=== PATIENT | female | born 1980 | race Two or more races ===

== ENCOUNTER 2016-12-10 23:48 | Emergency (ER) | payer SELFPAY ==
[~2016-12-10] VITALS: Ht 157.5 cm; Wt 49.9 kg
[~2016-12-10 23:48] MED LIST: CEPH-570 PO; OXYC-34 PO
--- NOTE | 2016-12-11 00:20 | NUR ---
P36 YO FEMALE BB SELF. PT IS ALERT X 3, C/O RIGHT FLANK AND ABD PAIN ON AND OFF X 1 MONTH DENIES N/V OR DIARRHEA. PT AMBULATED TO ER BED WITH STEADY GAIT, SKIN WARM AND DRY, RR EVEN AND UNLABORED. AWAITING ORDERS FROM PROVIDER, WILL CONITNUE TO MONITOR
--- NOTE | 2016-12-11 00:40 | NUR ---
MD VILCHIS AT BED SIDE FOR EVAL
[2016-12-11 01:15] LABS: BASOPHILS % (AUTO) 0.7 % (0.0-2.0); EOSINOPHILS # (AUTO) 0.1 /CMM (0.0-0.7); HEMATOCRIT 39 % (33-45); HEMOGLOBIN 13.1 g/dL (11.5-14.8); LYMPHOCYTES # (AUTO) 2.5 /CMM (0.8-4.8); LYMPHOCYTES % (AUTO) 40.3 % (20.0-44.0); MEAN CORPUSCULAR HEMOGLOBIN 32 PG (26.0-33.0); MEAN CORPUSCULAR HGB CONC 34 g/dl (31.0-36.0); MEAN CORPUSCULAR VOLUME 95 fL (82-100); MONOCYTES # (AUTO) 0.6 /CMM (0.1-1.30); MONOCYTES % (AUTO) 9.3 % (2.0-12.0); NEUTROPHILS % (AUTO) 47.7 % (43.0-81.0); PLATELET COUNT (AUTO) 268 /CMM (150-450); RDW COEFFICIENT OF VARIATION 14.9 (11.5-15.0); RED BLOOD CELL COUNT(AUTO) 4.08 MIL/uL (4.0-5.2); WHITE BLOOD COUNT (AUTO) 6.2 K/uL (4.3-11.0)
--- NOTE | 2016-12-11 01:33 | NUR ---
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 WILL CONTINUE TO MONITOR
[2016-12-11 01:35] LABS: INR 0.98 (0.87-1.13); PROTHROMBIN TIME 10.5 SECS (9.5-12.7)
[2016-12-11 01:46] LABS: CALCIUM, SERUM 8.5 mg/dL (8.5-10.1); POTASSIUM 3.2 mmol/L (3.5-5.1)
[2016-12-11 01:52] LABS: ALBUMIN 3.5 g/dL (3.4-5.0); BILIRUBIN,DIRECT 0.1 mg/dL (0.0-0.2); BILIRUBIN,TOTAL 0.5 mg/dL (0.2-1.0); TOTAL PROTEIN, SERUM 7.4 g/dL (6.4-8.2)
[2016-12-11] MEDS ORDERED: IV NS 0.9% 1,000 ML ONE (02:50)
[2016-12-11] MEDS ORDERED: FAMOTIDINE/PF INJ 20 MG/2 ML VIAL IV ONE ×2 (02:50→03:00)
[2016-12-11] MEDS ORDERED: METOCLOPRAMIDE HCL 10 MG/2 ML VIAL ONE (02:51)
--- NOTE | 2016-12-11 02:54 | NUR ---
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
[2016-12-11] MEDS ORDERED: IV NS 0.9% 1,000 ML BAG IV ONE (03:00)
[2016-12-11] MEDS ORDERED: METOCLOPRAMIDE HCL 10 MG/2 ML VIAL IV ONE (03:00)
[2016-12-11 03:53] VITALS: BP 107/55
--- NOTE | 2016-12-11 03:54 | NUR ---
Patient discharged to home in stable condition. Written and verbal after care instructions given. Patient verbalizes understanding of instruction.IV removed. Catheter intact and site benign. Pressure and 4x4 applied to site. No bleeding noted. PT ambulatory with a steady gait VITAL SIGNS WITHIN NORMAL LIMITS.
== END 2016-12-11 04:00 | disposition home or self-care (01) ==
LOC: ER 23:49
DX: K29.20 Alcoholic gastritis without bleeding (principal); F17.210 Nicotine dependence, cigarettes, uncomplicated
CPT/HCPCS: 36415; 76705-TC; 80048-TC; 80076-TC; 83690-TC; 84703-TC; 85025-TC; 85730-TC; A4606; J2765; J3490; J7030; Z7610

== ENCOUNTER 2018-01-28 00:10 | Emergency (ER) | payer OTHER ==
[~2018-01-28] VITALS: Ht 165.1 cm; Wt 63.5 kg
[~2018-01-28 00:10] MED LIST changes: +OXYC-133 PO; -OXYC-34 PO
[2018-01-28] MEDS ORDERED: ONDANSETRON HCL/PF 4 MG/2 ML VIAL ONE (00:27)
[2018-01-28] MEDS ORDERED: IV NS 0.9% 1,000 ML BAG IV ONE (00:30)
[2018-01-28] MEDS ORDERED: ONDANSETRON HCL/PF 4 MG/2 ML VIAL IVP ONE (00:30)
--- NOTE | 2018-01-28 00:42 | NUR ---
16g left ac iv started, blood sample obtained and sent to lab. medictaed pt as rodered
[2018-01-28 00:51] LABS: BASOPHILS # (AUTO) 0.1 /CMM (0.0-0.2); BASOPHILS % (AUTO) 0.6 % (0.0-2.0); EOSINOPHILS % (AUTO) 1.5 % (0.0-6.0); HEMATOCRIT 39 % (33-45); LYMPHOCYTES # (AUTO) 2.6 /CMM (0.8-4.8); LYMPHOCYTES % (AUTO) 27.9 % (20.0-44.0); MEAN CORPUSCULAR HEMOGLOBIN 31 PG (26.0-33.0); MEAN CORPUSCULAR HGB CONC 34 g/dl (31.0-36.0); MEAN CORPUSCULAR VOLUME 92 fL (82-100); MONOCYTES # (AUTO) 0.6 /CMM (0.1-1.30); NEUTROPHILS # (AUTO) 6.1 /CMM (1.8-8.9); PLATELET COUNT (AUTO) 387 /CMM (150-450); RDW COEFFICIENT OF VARIATION 14.6 (11.5-15.0); RED BLOOD CELL COUNT(AUTO) 4.23 MIL/uL (4.0-5.2); WHITE BLOOD COUNT (AUTO) 9.5 K/uL (4.3-11.0)
[2018-01-28 01:02] LABS: CALCIUM, SERUM 8.7 mg/dL (8.5-10.1); POTASSIUM 2.9 mmol/L (3.5-5.1)
[2018-01-28] MEDS ORDERED: POTASSIUM CHLORIDE 20 MEQ TAB.PRT.SR PO ONE ×3 (01:09→01:30)
--- NOTE | 2018-01-28 01:31 | NUR ---
IVF - NS 1 liter - started at 0031 AM -end time 0131 AM ; site LAC PIV # [id number]
--- NOTE | 2018-01-28 01:37 | NUR ---
PT APPEARS TO BE RESTING COMFORTABLY WITH NO S/S OF PAIN OR DISTRESS.
[2018-01-28 02:49] VITALS: BP 142/96
== END 2018-01-28 02:54 | disposition home or self-care (01) ==
LOC: ER 00:12
DX: T67.5XXA Heat exhaustion, unspecified, initial encounter (principal); F10.129 Alcohol abuse with intoxication, unspecified; E87.6 Hypokalemia; E86.0 Dehydration; F17.200 Nicotine dependence, unspecified, uncomplicated; Z98.890 Other specified postprocedural states; Z87.448 Personal history of other diseases of urinary system; Z79.899 Other long term (current) drug therapy; X58.XXXA Exposure to other specified factors, initial encounter; Y93.89 Activity, other specified; Y92.89 Other specified places as the place of occurrence of the external cause; Y99.8 Other external cause status; Y90.9 Presence of alcohol in blood, level not specified
CPT/HCPCS: 36415; 80048-TC; 84703-TC; 85025-TC; A4606; J2405; J7030; Z7610

== ENCOUNTER 2018-01-28 15:54 | Emergency (ER) | payer OTHER ==
[~2018-01-28] VITALS: Ht 157.5 cm; Wt 49.9 kg
[2018-01-28 17:11] LABS: APPEARANCE,URINE Clear (CLEAR); BILIRUBIN,URINE Negative (NEGATIVE); BLOOD, URINE Trace-lysed Ery/uL (NEGATIVE); COLOR,URINE Yellow (YELLOW); KETONES,URINE 15 (NEGATIVE); LEUKOCYTE ESTERASE ,URINE Negative (NEGATIVE); NITRITE, URINE Positive (NEGATIVE); PH,URINE 5.5 (5.0-8.0); PROTEIN,URINE 30 mg/dl (NEGATIVE); UGLUCOSE Negative (NEGATIVE); UROBILINOGEN,URINE 0.2 EU/dL (0.2)
[2018-01-28] MEDS ORDERED: CEFTRIAXONE 1GM BAG (ER ONLY) 1 GM/50 ML PIGGYBACK IV ONE (17:30)
[2018-01-28 17:31] LABS: BACTERIA,URINE 3+ /HPF (None Seen); SQUAMOUS EPITHELIAL CELL,UR Few /HPF (None Seen)
[2018-01-28] MEDS ORDERED: CEFTRIAXONE 1GM BAG (ER ONLY) 50 ML IV ONE (18:02)
[2018-01-28 18:31] VITALS: BP 132/81
== END 2018-01-28 18:32 | disposition home or self-care (01) ==
LOC: ER 15:57
DX: N39.0 Urinary tract infection, site not specified (principal); F10.10 Alcohol abuse, uncomplicated; Y90.9 Presence of alcohol in blood, level not specified; F17.200 Nicotine dependence, unspecified, uncomplicated; Z98.890 Other specified postprocedural states
CPT/HCPCS: 81001; 87086; 96365; 99284; A4606; J0696; Z7610; 81000-TC; 87186-TC

== ENCOUNTER 2023-04-29 20:48 | Emergency (ER) | payer OTHER ==
[~2023-04-29] VITALS: Ht 157.5 cm; Wt 48.1 kg
[2023-04-29] MEDS ORDERED: KETOROLAC TROMETHAMINE INJ 30 MG/ML VIAL ONE (21:50)
[2023-04-29] MEDS ORDERED: KETOROLAC TROMETHAMINE INJ 30 MG/ML VIAL IV ONE (22:00)
[2023-04-29 22:17] LABS: BASOPHILS % (AUTO) 0.2 % (0.0-2.0); EOSINOPHILS % (AUTO) 0.1 % (0.0-6.0); HEMATOCRIT 36 % (33-45); HEMOGLOBIN 12.1 g/dL (11.5-14.8); LYMPHOCYTES # (AUTO) 0.9 K/uL (0.8-4.8); MEAN CORPUSCULAR HEMOGLOBIN 33 PG (26.0-33.0); MEAN CORPUSCULAR HGB CONC 34 g/dl (31.0-36.0); MEAN CORPUSCULAR VOLUME 96 fL (82-100); MONOCYTES # (AUTO) 1.3 K/uL (0.1-1.30); MONOCYTES % (AUTO) 8.3 % (2.0-12.0); NEUTROPHILS # (AUTO) 13.4 K/uL (1.8-8.9); NEUTROPHILS % (AUTO) 85.4 % (43.0-81.0); PLATELET COUNT (AUTO) 271 K/uL (150-450); RED BLOOD CELL COUNT(AUTO) 3.72 MIL/uL (4.0-5.2); WHITE BLOOD COUNT (AUTO) 15.7 K/uL (4.3-11.0)
[2023-04-29 22:22] LABS: APPEARANCE,URINE SLIGHTLY CLOUDY (CLEAR); BILIRUBIN,URINE NEGATIVE (NEGATIVE); BLOOD, URINE 1+ Ery/uL (NEGATIVE); COLOR,URINE YELLOW (YELLOW); KETONES,URINE NEGATIVE (NEGATIVE); LEUKOCYTE ESTERASE ,URINE NEGATIVE (NEGATIVE); NITRITE, URINE NEGATIVE (NEGATIVE); PROTEIN,URINE 3+ mg/dl (NEGATIVE); UGLUCOSE NEGATIVE (NEGATIVE); UROBILINOGEN,URINE 0.2 EU/dL (0.2)
[2023-04-29 22:25] LABS: PREGNANCY TEST URINE QUAL NEGATIVE (NEGATIVE)
[2023-04-29] MEDS ORDERED: IV NS 0.9% 1,000 ML BAG IV ONE (22:30)
[2023-04-29 22:40] LABS: ALBUMIN 2.9 g/dL (3.4-5.0); BILIRUBIN,DIRECT 0.1 mg/dL (0.0-0.2); BILIRUBIN,TOTAL 0.4 mg/dL (0.2-1.0); CALCIUM, SERUM 8.6 mg/dL (8.5-10.1); CREATININE 0.9 mg/dL (0.6-1.3); POTASSIUM 3.1 mmol/L (3.5-5.1)
[2023-04-29 23:30] LABS: ADD URINE CULTURE YES; BACTERIA,URINE 1+ /HPF (None Seen)
[2023-04-29 23:31] LABS: MUCUS,URINE Many /LPF (None Seen)
[2023-04-30] MEDS ORDERED: SULF1TAB48 PO (00:36)
[2023-04-30] MEDS ORDERED: KETO10TA2 PO (00:36)
[2023-04-30] MEDS ORDERED: HYDR-4209 PO (00:36)
[2023-04-30] MEDS ORDERED: KETOROLAC TROMETHAMINE INJ 30 MG/ML VIAL ONE (00:42)
[2023-04-30] MEDS ORDERED: MORPHINE SULFATE INJ 4 MG/ML DISP.SYRIN ONE (00:42)
[2023-04-30 00:54] VITALS: BP 139/92; TEMP 98.9; O2SAT 97
[2023-04-30] MEDS ORDERED: MORPHINE SULFATE INJ 2 MG/ML DISP.SYRIN IV ONE (01:00)
[2023-04-30] MEDS ORDERED: KETOROLAC TROMETHAMINE INJ 30 MG/ML VIAL IV ONE (01:00)
== END 2023-04-30 00:54 | disposition home or self-care (01) ==
LOC: ER 20:54
DX: N12 Tubulo-interstitial nephritis, not specified as acute or chronic (principal); R10.9 Unspecified abdominal pain; F17.200 Nicotine dependence, unspecified, uncomplicated; Z20.822 Contact with and (suspected) exposure to COVID-19
CPT/HCPCS: 99285; 74176; 96374; 71045; 96361; 87426; 87804 ×2; 85025; 80048; 87086; 83690; 80076; 84703; 81001; 36415; 96376; J1885 ×2; J7030; C9803; J2270

== ENCOUNTER 2024-01-14 15:04 | Emergency (ER) | payer OTHER ==
[~2024-01-14] VITALS: Ht 157.5 cm; Wt 49.9 kg
[~2024-01-14 15:04] MED LIST changes: +HYDR-4209 PO; +KETO10TA2 PO; +SULF1TAB48 PO
[2024-01-14 16:15] VITALS: BP 118/66; TEMP 98.7; O2SAT 100
== END 2024-01-14 16:21 | disposition home or self-care (01) ==
LOC: ER 15:26
DX: R13.10 Dysphagia, unspecified (principal); H53.8 Other visual disturbances; T70.4XXA Effects of high-pressure fluids, initial encounter; F17.200 Nicotine dependence, unspecified, uncomplicated; Z98.890 Other specified postprocedural states; Z79.899 Other long term (current) drug therapy; X58.XXXA Exposure to other specified factors, initial encounter